=== PATIENT | female | born 1985 | race Caucasian/White ===

== ENCOUNTER 2018-12-06 21:16 | Emergency (ER) | payer MEDICAID, OTHER ==
[~2018-12-06] VITALS: Ht 170.2 cm; Wt 79.0 kg
[~2018-12-06 21:16] MED LIST: CLIN300C10 PO; HYDR-4011 PO; NO MEDS
[2018-12-06 21:19] VITALS: BP 146/73; PULSE 90; RESP 16; Ht 170.2 cm; Wt 79.0 kg
[2018-12-06] MEDS ORDERED: HYDROCODONE/APAP (10/325) TAB PO ONE (22:30)
== END 2018-12-06 22:42 | disposition home or self-care (01) ==
LOC: FTE 21:16
DX: K08.89 Other specified disorders of teeth and supporting structures (principal); F17.210 Nicotine dependence, cigarettes, uncomplicated
CPT/HCPCS: Z7502; Z7610; 99283